=== PATIENT | female | born 1985 | race Caucasian/White ===

== ENCOUNTER 2021-12-13 22:27 | Emergency (ER) | payer MEDICARE, MEDICAID ==
[~2021-12-13 22:27] MED LIST: birth control; celexa; depakote
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
[2021-12-13 22:43] LABS: BASOPHILS # (AUTO) 0.1 10^3/uL (0.0-0.1); BASOPHILS % (AUTO) 1 % (0-10); EOSINOPHILS # (AUTO) 0.3 10^3/uL (0.0-0.3); EOSINOPHILS % (AUTO) 3 % (0-10); HEMATOCRIT 43 % (35-52); HEMOGLOBIN 14.6 g/dL (11.5-16.0); LYMPHOCYTES # (AUTO) 4.5 10^3/uL (1.0-4.0); LYMPHOCYTES % (AUTO) 47 % (12-44); MEAN CORPUSCULAR HEMOGLOBIN 30 pg (25-34); MEAN CORPUSCULAR HGB CONC 34 g/dL (32-36); MEAN CORPUSCULAR VOLUME 87 fL (80-99); MEAN PLATELET VOLUME 10.5 fL (9.0-12.2); MONOCYTES # (AUTO) 0.4 10^3/uL (0.0-1.0); MONOCYTES % (AUTO) 5 % (0-12); NEUTROPHILS # (AUTO) 4.3 10^3/uL (1.8-7.8); NEUTROPHILS % (AUTO) 45 % (42-75); PLATELET COUNT 222 10^3/uL (130-400); WHITE BLOOD COUNT 9.5 10^3/uL (4.3-11.0)
[2021-12-13] MEDS ORDERED: diphenhydrAMINE 50 MG/ML INJ (BENADRYL) IVP PRN (22:45)
[2021-12-13] MEDS ORDERED: LORazepam INJ 2 MG/ML (ATIVAN) VIAL IVP PRN (22:45)
[2021-12-13] MEDS ORDERED: HALOPERIDOL 5 MG/ML (HALDOL) VIAL IM PRN (22:45)
[2021-12-13 23:03] LABS: ACETAMINOPHEN < 10 UG/ML (10-30); ALANINE AMINOTRANSFERASE 19 U/L (0-55); ALBUMIN 4.1 GM/DL (3.2-4.5); ALKALINE PHOSPHATASE 87 U/L (40-136); BILIRUBIN,TOTAL 0.3 MG/DL (0.1-1.0); BUN/CREATININE RATIO 13; CALCIUM 8.7 MG/DL (8.5-10.1); CARBON DIOXIDE 23 MMOL/L (21-32); CHLORIDE 104 MMOL/L (98-107); CREATININE SERUM 0.64 MG/DL (0.60-1.30); GFR ESTIMATED 116; GLUCOSE 135 MG/DL (70-105); POTASSIUM 4.2 MMOL/L (3.6-5.0); SALICYLATE < 0.3 MG/DL (5.0-20.0); SODIUM 139 MMOL/L (135-145); TOTAL PROTEIN 7.2 GM/DL (6.4-8.2)
[2021-12-13 23:42] LABS: BILIRUBIN,URINE NEGATIVE (NEGATIVE); CLARITY,URINE CLEAR; COLOR,URINE YELLOW; GLUCOSE, URINE (UA) NEGATIVE (NEGATIVE); KETONES,URINE NEGATIVE (NEGATIVE); LEUKOCYTE ESTERASE ,URINE NEGATIVE (NEGATIVE); NITRITE,URINE NEGATIVE (NEGATIVE); PH,URINE 6.5 (5-9); PROTEIN,URINE NEGATIVE (NEGATIVE)
[2021-12-13 23:44] LABS: BACTERIA,URINE TRACE /HPF
[2021-12-13 23:52] LABS: AMPHETAMINE SCREEN, URINE POSITIVE (NEGATIVE); BARBITURATE SCREEN URINE NEGATIVE (NEGATIVE); BENZODIAZEPINES SCREEN URINE NEGATIVE (NEGATIVE); CANNABINOID SCREEN, URINE POSITIVE (NEGATIVE); COCAINE SCREEN URINE NEGATIVE (NEGATIVE); OPIATE SCREEN URINE NEGATIVE (NEGATIVE); TRICYCLIC ANTIDEPRESSANTS SCRE NEGATIVE (NEGATIVE)
[2021-12-13 23:53] LABS: METHADONE STAT NEGATIVE (NEGATIVE); OXYCODONE STAT NEGATIVE (NEGATIVE); PROPOXYPHENE STAT NEGATIVE (NEGATIVE)
[2021-12-14] MEDS ORDERED: LORazepam INJ 2 MG/ML (ATIVAN) VIAL IVP PRN (00:15)
[2021-12-14] MEDS ORDERED: NS IV 1000 ML 1,000 ML ONE ×2 (01:11→05:42)
[2021-12-14] MEDS ORDERED: NS IV 1000 ML 1,000 ML IV SCH (01:15)
[2021-12-14 15:45] VITALS: BP 99/59
== END 2021-12-14 15:51 | disposition home or self-care (01) ==
LOC: EDUNIT# 22:27 → ER FS 22:29
DX: F12.129 Cannabis abuse with intoxication, unspecified (principal); F15.129 Other stimulant abuse with intoxication, unspecified; R45.1 Restlessness and agitation
CPT/HCPCS: 36415 ×2; 80053; 80306; 81000; 85025; 93041; 99284; G0480 ×4; 80320; 80329